=== PATIENT | male | born 1955 | race African-American/Black ===

== ENCOUNTER 2016-12-08 04:53 | Day surgery (SDC) | payer OTHER ==
[2016-12-06 16:47] VITALS: BMI 21.8
--- NOTE | 2016-12-08 11:13 | OP ---
Operative Note - Note: Operative Date: 12/08/16 Pre-Operative Diagnosis: urethral stricture Operation: retrograde urethrogram, cystoscopy and internal urethrotomy Findings: short urethral stricture bulbar area Post-Operative Diagnosis: Same as Pre-op Surgeon: Matt Dyer Anesthesiologist/GRAPE PRUNER: Prudence Sabillon MD Anesthesia: General Drains & Tubes with Location: 18 fr uriz Operative Report Dictated: Yes
[2016-12-08] MEDS ORDERED: MIDAZOLAM HCL 2 MG/2 ML SINGLE DOSE VIAL ONE (11:15)
--- NOTE | 2016-12-08 11:18 | HP ---
History & Physical Update - History History: No Change - Physical Physical: No Change - Assessment Assessment: No Change - Plan Plan: No Change
[2016-12-08] MEDS ORDERED: SUCCINYLCHOLINE CHLORIDE 200 MG/10 ML VIAL ONE (11:19)
[2016-12-08] MEDS ORDERED: PROPOFOL 20 ML ONE (11:19)
[2016-12-08] MEDS ORDERED: ceFAZolin SODIUM 1 GM VIAL IVPB ONE (11:27)
[2016-12-08] MEDS ORDERED: ceFAZolin SODIUM 1 GM VIAL ONE (11:37)
[2016-12-08] MEDS ORDERED: PROMETHAZINE HCL 25 MG/1 ML VIAL IVPUSH PRN (12:19)
[2016-12-08] MEDS ORDERED: oxyCODONE HCL 5 MG TABLET PO PRN (12:19)
[2016-12-08] MEDS ORDERED: ONDANSETRON 4 MG/2 ML VIAL IVPUSH PRN (12:19)
[2016-12-08] MEDS ORDERED: LACTATED RINGERS SOLUTION 1,000 ML IV SCH (12:30)
[2016-12-08 13:54] VITALS: TEMP 97.4
[2016-12-08 14:31] VITALS: BP 147/79; PULSE 71
--- NOTE | 2016-12-09 06:46 | OP ---
DATE OF OPERATION: 12/08/2016 PREOPERATIVE DIAGNOSIS: Urethral stricture. POSTOPERATIVE DIAGNOSIS: Urethral stricture. PROCEDURE: Retrograde urethrogram, cystoscopy, and internal urethrotomy. SURGEON: Matt Rome MD LIME MIXER: None. ANESTHESIA: General via laryngeal mask. ANESTHESIOLOGIST: Prudence Sabillon MD SPECIMENS: None. CULTURES: None. DRAINS: An 18-Maltese Mora catheter. ESTIMATED BLOOD LOSS: Negligible. COMPLICATIONS: None. DESCRIPTION OF PROCEDURE: The patient was brought into the operating room and placed on the operating room table in a supine position. After administration of intravenous antibiotics, general sedation was administered via laryngeal mask. Now the patient was placed in the dorsal lithotomy position. The perineum and genitals were prepped and draped in the usual sterile manner. Retrograde urethrogram was done and demonstrated a short stricture in the bulbar urethral region. Now urethrotome was inserted into the anterior urethra with the obturator in place. The working element was inserted, and the 12-degree telescope in the anterior urethra demonstrated a short stricture in the bulbar region. Now a guidewire was passed through the stricture and advanced into the bladder. Now urethrotome was advanced to the level of the stricture, and the stricture was incised at the 12 o'clock position down to healthy, bleeding tissue. The urethrotome was now advanced into prostatic urethra, which demonstrated moderate bilobar occlusion. The bladder was entered and thoroughly inspected. There were no foreign bodies, tumors, stones, or inflammation. Both ureteral orifices were in their usual location with clear efflux bilaterally. The guidewire was left in place. Urethrotome was withdrawn. The stricture was once again incised at the 12 o'clock position down to healthy, bleeding tissue. Now an 18-Maltese tolerance was inserted over the guidewire, 10 mL was placed in the balloon and placed in gravity drainage. Returned minimally blood tinged. The guidewire was removed. The catheter was attached to drainage bag. He tolerated the procedure well and was awoken from anesthesia in the operating room and transferred to recovery room in stable condition. He will be followed in the office on Sunday on Mora removal. MATT ROME M.D. [id number]
== END 2016-12-08 14:33 | disposition home or self-care (01) ==
LOC: JASU-SURG 04:53
PROVIDERS: ATTEND Urology
PROC: BT1BZZZ Fluoroscopy of Bladder and Urethra (ICD-10-PCS; 2016-12-08)
PROC: 0T7D8ZZ Dilation of Urethra, Via Natural or Artificial Opening Endoscopic (ICD-10-PCS; principal; 2016-12-08 12:00)
DX: N35.9 Urethral stricture, unspecified (principal)
CPT/HCPCS: 76000-TC; 94760

== ENCOUNTER 2017-01-17 15:53 | Emergency (ER) | payer OTHER ==
--- NOTE | 2017-01-17 16:06 | PDOC ---
Rapid Medical Evaluation Time Seen by Provider: 01/17/17 16:05 Medical Evaluation: Allergies Allergy/AdvReac Type Severity Reaction Status Date / Time tizanidine AdvReac Intermediate confusion Verified 12/06/16 16:32 01/17/17 16:05 61 yo M c/o hematuria with bladder pressure x4d. No n/v/f/c, denies flank pain. Urologist: Dr. Dyer 12/08/2016: retrograde urethrogram, cystoscopy and internal urethrotomy
[2017-01-17 16:09] VITALS: BP 166/101; PULSE 92; TEMP 97.7; BMI 21.8
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
[2017-01-17 18:13] LABS: URINE APPEARANCE CLEAR; URINE BILIRUBIN NEGATIVE (NEGATIVE); URINE BLOOD NEGATIVE (NEGATIVE); URINE COLOR YELLOW; URINE GLUCOSE (UA) NEGATIVE (NEGATIVE); URINE KETONE NEGATIVE (NEGATIVE); URINE NITRITE NEGATIVE (NEGATIVE); URINE UROBILINOGEN 2.0 E.U/dl E.U./dl (0.2-1.0)
[2017-01-17 18:19] LABS: BASOPHIL 4.4 % (0-2.0); EOSINOPHIL 3.4 % (0-4.5); MCH 31.4 pg (25.7-33.7); MCHC 33.9 g/dl (32.0-35.9); MEAN CELL VOLUME 92.8 fl (80-96); MEAN PLT VOLUME 8.4 fl (7.5-11.1); NEUTROPHILS 41.8 % (42.8-82.8); PLATELET COUNT 287 K/MM3 (134-434); RDW 14.6 % (11.9-15.9); WHITE BLOOD COUNT 7.4 K/mm3 (4.0-10.0)
[2017-01-17 18:57] LABS: URINE LEUK ESTERASE 2+ (NEGATIVE); URINE PROTEIN 1+ (NEGATIVE)
[2017-01-17 19:07] LABS: ALBUMIN 3.7 g/dl (3.4-5.0); BILIRUBIN,TOTAL 0.3 mg/dL (0.2-1.0); CALCIUM 9.2 mg/dL (8.5-10.1); CREATININE 1.3 mg/dL (0.7-1.3); TOT PROT 7.6 g/dl (6.4-8.2)
[2017-01-17 19:21] LABS: URINE MUCUS RARE; URINE RBC 2 /hpf (0-3); URINE WBC 9 /hpf (3-5)
[2017-01-17 19:24] LABS: INR 1.01 (0.82-1.09); PROTHROMBIN TIME (PATIENT) 11.1 SEC (9.98-11.88)
--- NOTE | 2017-01-17 22:20 | PDOC ---
Attending Attestation - Resident Resident Name: Ashlie Hannany - ED Attending Attestation I have performed the following: I have examined & evaluated the patient, The case was reviewed & discussed with the resident, I agree w/resident's findings & plan, Exceptions are as noted - HPI HPI: 01/17/17 22:16 61-year-old male with history of BPH, history of recurrent urethral strictures presents with intermittent hematuria, suprapubic abdominal pain and dysuria. - Physicial Exam PE: 01/17/17 22:17 Patient is awake and alert, well-appearing, afebrile. Serial abdominal exams reveal no focal tenderness, suprapubic discomfort initially noted upon evaluation had resolved post voiding. Gross Hematuria had also resolved. - Medical Decision Making 01/17/17 22:18 61-year-old male with history of BPH, urethral stricture status post dilation, presents with intermittent gross hematuria which has now resolved, dysuria, suprapubic abdominal pain which had also resolved.CBC/CMP within normal limit. Urinalysis reveals 9 WBCs per high-power field. Urine cultures been obtained. Will discharge with Bactrim with urology follow-up.
== END 2017-01-17 20:16 | disposition home or self-care (01) ==
LOC: JER 15:53
DX: N39.0 Urinary tract infection, site not specified (principal); Z87.891 Personal history of nicotine dependence; N40.0 Benign prostatic hyperplasia without lower urinary tract symptoms; B19.20 Unspecified viral hepatitis C without hepatic coma; I10 Essential (primary) hypertension
CPT/HCPCS: 36415; 80053; 81003; 81015; 85025; 85610; 87086; 99283-25

== ENCOUNTER 2018-06-28 08:23 | Emergency (ER) | payer OTHER ==
[2018-06-28 08:36] VITALS: TEMP 97; BMI 21.6
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
[2018-06-28 09:25] LABS: BASO % 1.3 % (0-2.0); EOS % 1.8 % (0-4.5); HEMATOCRIT 33.7 % (35.4-49); HEMOGLOBIN 11.5 GM/dL (11.7-16.9); LYMPH % 20.1 % (8-40); MCH 30.2 pg (25.7-33.7); MCHC 34.2 g/dl (32.0-35.9); MEAN CELL VOLUME 88.2 fl (80-96); MEAN PLT VOLUME 7.9 fl (7.5-11.1); MONO % 9.6 % (3.8-10.2); NEUT % 67.2 % (42.8-82.8); PLATELET COUNT 323 K/MM3 (134-434); RBC 3.83 M/mm3 (4.00-5.60); RDW 14.3 % (11.9-15.9); WHITE BLOOD COUNT 9.2 K/mm3 (4.0-10.0)
--- NOTE | 2018-06-28 09:25 | PDOC ---
Attending Attestation - Resident Resident Name: DebbieArden - ED Attending Attestation I have performed the following: I have examined & evaluated the patient, The case was reviewed & discussed with the resident, I agree w/resident's findings & plan, Exceptions are as noted - HPI HPI: 06/28/18 09:11 62y M hx of htn, tb s/p lung resection, uretheral stricture, persents with 2 weeks ago dysuria and difficutly urinating. Pt denies any fever/chills, n/v, abd pain, back pain pt has appt on 07/[address] costa scheduled. - Physicial Exam PE: 06/28/18 10:43 abd: sfot nontender, no cva tendneress, nondistended - Medical Decision Making 06/28/18 10:41 ua suggestive of UTI will treat with abx will refer to dr. costa
[2018-06-28 09:53] LABS: URINE APPEARANCE CLOUDY; URINE BILIRUBIN NEGATIVE (<2.0 mg/dL); URINE COLOR AMBER; URINE GLUCOSE (UA) NEGATIVE (NEGATIVE); URINE KETONE NEGATIVE (NEGATIVE); URINE NITRITE NEGATIVE (NEGATIVE); URINE PROTEIN NEGATIVE (NEGATIVE); URINE UROBILINOGEN NEGATIVE mg/dL (0.2-1.0)
[2018-06-28 09:59] LABS: ALBUMIN 3.5 g/dl (3.4-5.0); ANION GAP 10 (8-16); BILIRUBIN,TOTAL 0.2 mg/dL (0.2-1.0); BLOOD UREA NITROGEN 15 mg/dL (7-18); CALCIUM 9.2 mg/dL (8.5-10.1); CHLORIDE 101 mmol/L (98-107); CO2 27 mmol/L (21-32); CREATININE 1.2 mg/dL (0.7-1.3); GLUCOSE,RANDOM 119 mg/dL (74-106); POTASSIUM 3.8 mmol/L (3.5-5.1); SGOT/AST 26 U/L (15-37); SGPT/ALT 25 U/L (12-78); SODIUM 138 mmol/L (136-145); TOT PROT 8.4 g/dl (6.4-8.2)
[2018-06-28 10:00] LABS: ALK PHOS 148 U/L (45-117)
[2018-06-28 10:11] LABS: URINE LEUK ESTERASE 3+ (NEGATIVE)
[2018-06-28 10:17] LABS: EPI CELLS RARE /HPF (FEW); URINE BACTERIA MANY /hpf (NONE SEEN); URINE HYALINE CAST 4 /lpf; URINE MUCUS RARE
[2018-06-28 11:27] VITALS: BP 130/79; PULSE 70
== END 2018-06-28 11:28 | disposition home or self-care (01) ==
LOC: JER 08:23
DX: N39.0 Urinary tract infection, site not specified (principal); I10 Essential (primary) hypertension; E78.5 Hyperlipidemia, unspecified; N40.0 Benign prostatic hyperplasia without lower urinary tract symptoms; Z86.69 Personal history of other diseases of the nervous system and sense organs; Z87.891 Personal history of nicotine dependence
CPT/HCPCS: 36415; 80053; 81003; 81015; 85025; 87086; 87186; 99282-25

== ENCOUNTER 2018-10-14 07:57 | Emergency (ER) | payer OTHER ==
[2018-10-14 08:18] VITALS: BP 105/82; TEMP 98.2; BMI 22.6
[2018-10-14] MEDS ORDERED: SODIUM CHLORIDE 1,000 ML IV STA (09:38)
[2018-10-14] MEDS ORDERED: ACETAMINOPHEN 1000 MG/100 ML VIAL (NON FORMULARY) IVPB ONE (09:38)
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
[2018-10-14] MEDS ORDERED: ACETAMINOPHEN INJECTION 100 ML IVPB ONE (09:47)
[2018-10-14 10:06] LABS: BASO % 1.2 % (0-2.0); EOS % 0.9 % (0-4.5); HEMATOCRIT 36.3 % (35.4-49); HEMOGLOBIN 12.7 GM/dL (11.7-16.9); LYMPH % 29.4 % (8-40); MCH 30.2 pg (25.7-33.7); MEAN CELL VOLUME 86.4 fl (80-96); MONO % 9.7 % (3.8-10.2); NEUT % 58.8 % (42.8-82.8); PLATELET COUNT 341 K/MM3 (134-434); RBC 4.21 M/mm3 (4.00-5.60); RDW 15.3 % (11.9-15.9)
[2018-10-14 10:53] LABS: ALBUMIN 3.7 g/dl (3.4-5.0); ALK PHOS 109 U/L (45-117); ANION GAP 10 MMOL/L (8-16); BILIRUBIN,TOTAL 0.3 mg/dL (0.2-1); BLOOD UREA NITROGEN 22 mg/dL (7-18); CALCIUM 9.3 mg/dL (8.5-10.1); CHLORIDE 104 mmol/L (98-107); CO2 23 mmol/L (21-32); CREATININE 1.5 mg/dL (0.55-1.3); GLUCOSE,RANDOM 91 mg/dL (74-106); LIPASE 108 U/L (73-393); POTASSIUM 4.2 mmol/L (3.5-5.1); SGOT/AST 27 U/L (15-37); SGPT/ALT 27 U/L (13-61); SODIUM 138 mmol/L (136-145); TOT PROT 8.3 g/dl (6.4-8.2)
[2018-10-14 11:51] LABS: URINE APPEARANCE CLOUDY; URINE BILIRUBIN NEGATIVE (<2.0 mg/dL); URINE COLOR AMBER; URINE GLUCOSE (UA) NEGATIVE (NEGATIVE); URINE KETONE NEGATIVE (NEGATIVE); URINE LEUK ESTERASE 3+ (NEGATIVE); URINE NITRITE POSITIVE (NEGATIVE); URINE PROTEIN 1+ (NEGATIVE); URINE UROBILINOGEN NEGATIVE mg/dL (0.2-1.0)
[2018-10-14 12:30] LABS: EPI CELLS RARE /HPF (FEW); URINE BACTERIA FEW /hpf (NONE SEEN); URINE HYALINE CAST 3 /lpf; URINE MUCUS RARE
[2018-10-14 13:56] VITALS: PULSE 88
== END 2018-10-14 13:54 | disposition home or self-care (01) ==
LOC: JER 07:57
PROC: 3E0337Z Introduction of Electrolytic and Water Balance Substance into Peripheral Vein, Percutaneous Approach (ICD-10-PCS; principal; 2018-10-14)
PROC: 3E033NZ Introduction of Analgesics, Hypnotics, Sedatives into Peripheral Vein, Percutaneous Approach (ICD-10-PCS; 2018-10-14)
DX: N39.0 Urinary tract infection, site not specified (principal); I10 Essential (primary) hypertension; N40.0 Benign prostatic hyperplasia without lower urinary tract symptoms; Z86.19 Personal history of other infectious and parasitic diseases; Z86.69 Personal history of other diseases of the nervous system and sense organs
CPT/HCPCS: 36415; 74177-TC; 80053; 81003; 81015; 83690; 85025; 87086; 96361; 96374; 99282-25; J0131; J7030

== ENCOUNTER 2020-01-06 09:20 | Day surgery (SDC) | payer OTHER ==
[2020-01-02 15:20] VITALS: BMI 23.6
[2020-01-06] MEDS ORDERED: PROPOFOL 20 ML ONE ×2 (12:33)
[2020-01-06] MEDS ORDERED: LACTATED RINGERS SOLUTION 1,000 ML IV SCH (12:45)
--- NOTE | 2020-01-06 12:54 | CONS ---
DATE OF CONSULTATION: DATE OF DICTATION: 01/06/2020 HISTORY: Patient is a 64-year-old male with history of prostatism including frequency, nocturia, urgency, terminal dribbling. He also complained of left flank pain. An ultrasound of the kidneys revealed a left hydronephrosis secondary to a stone in the left midureter. PAST MEDICAL HISTORY: The patient does have history of prostate cancer, underwent radiation treatment therapy in May 2019. He also has history of hepatitis C. He is a hypertensive, has history of recurrent herpes and is on prophylactic Valtrex. PHYSICAL EXAMINATION: General: Reveals a well-developed adult male. Chest: Clear. Heart: Regular. Abdomen: Soft. There is left CVA tenderness. Genitalia: Atraumatic. No hernias or hydroceles are elicited. Rectal: Prostate is 1+, flat, firm and nontender. DIAGNOSTIC DATA: His PSA last month is 0.16, BUN 23 and creatinine 1.3. Patient received his Lupron Depot on December 25, 2019. IMPRESSION: Presently he has a left hydronephrosis with a left ureteral stone. PLAN: Patient will undergo a cystoscopy, left retrograde pyelogram, left ureteroscopic laser lithotripsy with placement of a left JJ stent. This was explained in detail to patient and he agrees. Will follow. Jane [id number]
[2020-01-06] MEDS ORDERED: GENTAMICIN 80MG PREMIX BAG IVPB ONE (13:00)
[2020-01-06] MEDS ORDERED: ceFAZolin SODIUM 1 GM VIAL IVPB ONE (13:00)
--- NOTE | 2020-01-06 13:37 | OP ---
Operative Note - Note: Operative Date: 01/06/20 Pre-Operative Diagnosis: lt. hydro, lt. colick, lt. ureteral stones Operation: lull with jj srents Findings: lt. ureteral stones Post-Operative Diagnosis: Same as Pre-op Surgeon: Elias Brooks Anesthesia: General Specimens Removed: urine, gravel Estimated Blood Loss (mls): 0 Drains & Tubes with Location: 24cm 6f lt. jj stent Drains, Volume Out (mls): 0 Blood Volume Replaced (mls): 0 Fluid Volume Replaced (mls): 0 Operative Report Dictated: Yes
--- NOTE | 2020-01-06 14:18 | OP ---
DATE OF OPERATION: 01/06/2020 PREOPERATIVE DIAGNOSIS: Left hydronephrosis, left renal colic, hematuria, history of prostate cancer. POSTOPERATIVE DIAGNOSIS: Left ureteral stone, left hydronephrosis. OPERATIVE PROCEDURE: Cystourethroscopy, left retrograde pyelogram, left ureteroscopy, left stone basketing and placement of a left JJ stent. ANESTHESIA: General. DESCRIPTION OF PROCEDURE: Under above-stated anesthesia patient was prepped and draped in the usual sterile manner. He was placed in the dorsal lithotomy position. Cystoscopy under direct vision revealed a normal anterior urethra. Prostatic urethra was wide open. The bladder was emptied. The urine was collected for culture and sensitivity. There was a grade 2-3 trabeculation of the bladder. Ureteral orifices were within normal limits. Efflux of clear urine was noted from the right side; none was seen from the left. A left retrograde pyelogram was performed. This revealed a mild left hydroureteronephrosis. A glidewire was passed above the left renal unit. Several small stones were found in the midureter. Using a basket the fragments were removed. Ureteroscopy into the renal pelvis revealed no other pathology or stones. The pelvis was dilated. Therefore the ureteroscope was removed. A 22-cm 6-Salvad[place] left JJ stent was left in place. X-rays confirmed good position of the stent. The bladder was emptied. The scope was removed. The patient tolerated the procedure well. He returned to the recovery room in good condition. Jane [id number]
[2020-01-06 15:44] VITALS: BP 146/88; PULSE 65; TEMP 97.6
--- NOTE | 2020-01-07 16:52 | PATH ---
Cytology Non-Gynecological Report Patient Name: SALVADOR HENRY Med. Rec. #: [id number] /Age/Gender: 1955 (Age: 64) / M Account: [id number] Location: [facility] Taken: 01/06/2020 Received: 01/07/2020 Reported: 01/07/2020 Physicians: Elias Brooks M.D. Specimen(s) Received URINE Clinical History Calculi Final Diagnosis URINE FOR CYTOLOGY: SATISFACTORY FOR EVALUATION. NEGATIVE FOR HIGH GRADE UROTHELIAL CARCINOMA. RARE UROTHELIAL CELLS, SQUAMOUS EPITHELIAL CELLS, AND RED BLOOD CELLS PRESENT. Electronically Signed Ewelina Bragg M.D. Gross Description Approximately 25 cc of yellow fluid received fresh. One cytofunnel prepared and Pap stained.
--- NOTE | 2020-01-08 09:44 | PATH ---
Surgical Pathology Report Patient Name: SALVADOR HENRY Med. Rec. #: [id number] /Age/Gender: 1955 (Age: 64) / M Account: [id number] Location: [facility] Taken: 01/06/2020 Received: 01/06/2020 Reported: 01/08/2020 Physicians: Elias Brooks M.D. Specimen(s) Received CALCULI Clinical History Left hydronephrosis Final Diagnosis GRAVEL, LASER LITHOTRIPSY: CONSISTENT WITH FRAGMENTED CALCULI. MACROSCOPIC DIAGNOSIS. Electronically Signed By Ewelina Bragg M.D. Gross Description Received in formalin labeled "gravel," is a 0.2 x 0.1 x 0.1 cm aggregate of brown, fragmented calculi. The formalin is drained and the specimen is dried and sent for chemical analysis. /01/07/2020 [facility]01/07/2020
[2020-01-26 12:55] LABS: SIZE 2x3mm; WEIGHT 0.8mg
== END 2020-01-06 15:45 | disposition home or self-care (01) ==
LOC: JASU-SURG 09:20
PROVIDERS: ATTEND Urology
PROC: 0T9780Z Drainage of Left Ureter with Drainage Device, Via Natural or Artificial Opening Endoscopic (ICD-10-PCS; 2020-01-06)
PROC: BT1FZZZ Fluoroscopy of Left Kidney, Ureter and Bladder (ICD-10-PCS; 2020-01-06)
PROC: 0TF78ZZ Fragmentation in Left Ureter, Via Natural or Artificial Opening Endoscopic (ICD-10-PCS; principal; 2020-01-06 11:00)
PROC: 0T778DZ Dilation of Left Ureter with Intraluminal Device, Via Natural or Artificial Opening Endoscopic (ICD-10-PCS; 2020-01-06 11:00)
PROC: 0TC78ZZ Extirpation of Matter from Left Ureter, Via Natural or Artificial Opening Endoscopic (ICD-10-PCS; 2020-01-06 11:00)
DX: N13.2 Hydronephrosis with renal and ureteral calculous obstruction (principal); Z85.46 Personal history of malignant neoplasm of prostate
CPT/HCPCS: 36415; 82360; 87086; 88108; 94760

== ENCOUNTER 2021-03-04 22:09 | Emergency (ER) | payer OTHER ==
[2021-03-04 22:13] VITALS: TEMP 97; BMI 24.5
[2021-03-04] MEDS ORDERED: LIDOCAINE HCL 2% JELLY 10 ML CARTRIDGE UR ONE (23:08)
[2021-03-04] MEDS ORDERED: ACETAMINOPHEN 325 MG TABLET (FP) PO ONE (23:08)
[2021-03-04] MEDS ORDERED: LIDOCAINE HCL 2% JELLY 10 ML CARTRIDGE ONE (23:09)
[2021-03-04] MEDS ORDERED: ACETAMINOPHEN 325 MG TABLET (FP) ONE (23:10)
[2021-03-04 23:36] LABS: EPI CELLS 3 /uL (0-25.1); HYALINE CASTS 0 /uL (0-3.1); PH,URINE 8.5 (5.0-8.0); URINE APPEARANCE CLEAR; URINE BACTERIA 41 /uL (0-1359); URINE BILIRUBIN NEGATIVE (NEGATIVE); URINE COLOR YELLOW; URINE GLUCOSE (UA) NEGATIVE (NEGATIVE); URINE KETONE NEGATIVE (NEGATIVE); URINE LEUK ESTERASE NEGATIVE (NEGATIVE); URINE NITRITE NEGATIVE (NEGATIVE); URINE PROTEIN 1+ (NEGATIVE); URINE RBC 14 /uL (0-23.9); URINE UROBILINOGEN 0.2 mg/dL (0.2-1.0); URINE WBC 1 /uL (0-25.8)
[2021-03-05] VITALS: BP 168/84; PULSE 85
== END 2021-03-05 00:18 | disposition home or self-care (01) ==
LOC: JER 22:09
DX: R33.9 Retention of urine, unspecified (principal)
CPT/HCPCS: 81003; 87086; 99283-25

== ENCOUNTER 2021-11-02 05:36 | Emergency (ER) | payer OTHER ==
[2021-11-02 06:39] VITALS: TEMP 97.6; BMI 22.3
[2021-11-02 09:09] LABS: BASO % 0.4 % (0-2.0); EOS % 4.8 % (0-4.5); HEMATOCRIT 36.2 % (35.4-49); HEMOGLOBIN 12.4 GM/dL (11.7-16.9); MCH 30.8 pg (25.7-33.7); MCHC 34.4 g/dl (32.0-35.9); MEAN CELL VOLUME 89.6 fl (80-96); MEAN PLT VOLUME 8.6 fl (7.5-11.1); MONO % 7.9 % (3.8-10.2); NEUT % 55.9 % (42.8-82.8); PLATELET COUNT 302 10^3/uL (134-434); RBC 4.04 M/mm3 (4.00-5.60); RDW 15.1 % (11.9-15.9); WHITE BLOOD COUNT 7.3 K/mm3 (4.0-10.0)
[2021-11-02 09:15] LABS: EPI CELLS 14 /uL (0-25.1); HYALINE CASTS 2 /uL (0-3.1); URINE APPEARANCE CLEAR; URINE BACTERIA 4 /uL (0-1359); URINE BILIRUBIN NEGATIVE (NEGATIVE); URINE COLOR YELLOW; URINE GLUCOSE (UA) NEGATIVE (NEGATIVE); URINE KETONE NEGATIVE (NEGATIVE); URINE LEUK ESTERASE 2+ (NEGATIVE); URINE NITRITE NEGATIVE (NEGATIVE); URINE PROTEIN 1+ (NEGATIVE); URINE RBC 15 /uL (0-23.9); URINE UROBILINOGEN 0.2 mg/dL (0.2-1.0); URINE WBC 128 /uL (0-25.8)
[2021-11-02 09:28] LABS: CALCIUM 8.9 mg/dL (8.5-10.1)
[2021-11-02 09:29] LABS: ALBUMIN 3.6 g/dl (3.4-5.0); BLOOD UREA NITROGEN 25.9 mg/dL (7-18)
[2021-11-02 09:32] LABS: CREATININE 1.4 mg/dL (0.55-1.3)
[2021-11-02 09:33] LABS: BILIRUBIN,TOTAL 0.2 mg/dL (0.2-1)
[2021-11-02 09:34] LABS: TOT PROT 8.3 g/dl (6.4-8.2)
[2021-11-02] MEDS ORDERED: traMADol HCL 50 MG TABLET PO ONE (11:08)
[2021-11-02] MEDS ORDERED: traMADol HCL 50 MG TABLET ONE (11:13)
[2021-11-02 12:50] VITALS: BP 155/67; PULSE 90
== END 2021-11-02 12:51 | disposition home or self-care (01) ==
LOC: JER 05:36
DX: N30.00 Acute cystitis without hematuria (principal)
CPT/HCPCS: 36415; 76775-TC; 76856-TC; 80053; 81003; 85025; 87086; 99285-25

== ENCOUNTER 2022-12-18 07:36 | Emergency (ER) | payer OTHER ==
[2022-12-18 08:00] VITALS: BP 157/96; PULSE 92; RESP 20; TEMP 97.5; BMI 24.7
[2022-12-18 08:54] LABS: EPI CELLS 3 /uL (0-25.1); HYALINE CASTS 0 /uL (0-3.1); URINE APPEARANCE CLEAR; URINE BACTERIA 2 /uL (0-1359); URINE BILIRUBIN NEGATIVE (NEGATIVE); URINE COLOR YELLOW; URINE GLUCOSE (UA) NEGATIVE (NEGATIVE); URINE KETONE NEGATIVE (NEGATIVE); URINE LEUK ESTERASE NEGATIVE (NEGATIVE); URINE NITRITE NEGATIVE (NEGATIVE); URINE PROTEIN 2+ (NEGATIVE); URINE RBC 34 /uL (0-23.9); URINE UROBILINOGEN 0.2 mg/dL (0.2-1.0); URINE WBC 2 /uL (0-25.8)
== END 2022-12-18 10:07 | disposition home or self-care (01) ==
LOC: JERFT 07:36 → JER 07:36 → JERFT 10:07
DX: R30.0 Dysuria (principal)
CPT/HCPCS: 81003; 87086; 99283-25

== ENCOUNTER 2024-03-28 03:51 | Day surgery (SDC) | payer OTHER ==
[2024-03-26 16:04] VITALS: BMI 24.0
[2024-03-28] MEDS ORDERED: BUPIVACAINE HCL/PF 0.5% (5MG/ML) 10 ML VIAL ONE (07:05)
[2024-03-28 13:05] VITALS: TEMP 97.6
[2024-03-28] MEDS: LIDOCAINE HCL 1% PRESERVATIVE FREE - 30ML VIAL IJ ONE ×2 (13:55)
[2024-03-28] MEDS: BUPIVACAINE HCL/PF 0.5% (5MG/ML) 10 ML VIAL IJ ONE ×5 (13:56→14:03)
[2024-03-28 14:17] VITALS: BP 145/77; PULSE 65; RESP 18
[2024-03-28] MEDS ORDERED: ACETAMINOPHEN 500 MG TABLET (FP) PO PRN (14:46)
== END 2024-03-28 14:44 | disposition home or self-care (01) ==
LOC: JASU-SURG 03:51
PROVIDERS: ATTEND Pain Medicine Pain Medicine
PROC: BR14YZZ Fluoroscopy of Cervical Facet Joint(s) using Other Contrast (ICD-10-PCS; 2024-03-28)
PROC: 3E0T3BZ Introduction of Anesthetic Agent into Peripheral Nerves and Plexi, Percutaneous Approach (ICD-10-PCS; principal; 2024-03-28 17:45)
DX: M47.811 Spondylosis without myelopathy or radiculopathy, occipito-atlanto-axial region (principal)
CPT/HCPCS: 76000-TC-FY

== ENCOUNTER 2024-11-20 07:33 | Emergency (ER) | payer OTHER ==
[2024-11-20 07:44] VITALS: TEMP 97.1; BMI 22.6
[2024-11-20 09:32] LABS: BASO % 2.3 % (0-2.0); EOS % 3.1 % (0-4.5); HEMATOCRIT 36.8 % (35.4-49); HEMOGLOBIN 12.6 GM/dL (11.7-16.9); LYMPH % 35.1 % (8-40); MCH 30.7 pg (25.7-33.7); MCHC 34.2 g/dl (32.0-35.9); MEAN CELL VOLUME 89.6 fl (80-96); MEAN PLT VOLUME 8.8 fl (7.5-11.1); MONO % 11.4 % (3.8-10.2); NEUT % 48.1 % (42.8-82.8); PLATELET COUNT 273 10^3/uL (134-434); RBC 4.11 M/mm3 (4.00-5.60); RDW 14.2 % (11.9-15.9); WHITE BLOOD COUNT 5.9 K/mm3 (4.0-10.0)
[2024-11-20 09:35] LABS: PH,URINE 6.5 (5.0-8.0); URINE APPEARANCE CLOUDY; URINE BILIRUBIN NEGATIVE (NEGATIVE); URINE COLOR YELLOW; URINE GLUCOSE (UA) NEGATIVE (NEGATIVE); URINE KETONE NEGATIVE (NEGATIVE); URINE LEUK ESTERASE 2+ (NEGATIVE); URINE NITRITE NEGATIVE (NEGATIVE); URINE PROTEIN 1+ (NEGATIVE); URINE UROBILINOGEN 0.2 mg/dL (0.2-1.0)
[2024-11-20 09:43] LABS: EPI CELLS 1.6 /uL (0-25.1); HYALINE CASTS 0 /uL (0-3.1); URINE BACTERIA 81428 /uL (0-1359); URINE WBC 2424 /uL (0-25.8)
[2024-11-20 09:55] LABS: POTASSIUM 4.4 mmol/L (3.5-5.1)
[2024-11-20 09:57] LABS: CALCIUM 10.4 mg/dL (8.5-10.1)
[2024-11-20 09:58] LABS: ALBUMIN 3.8 g/dl (3.4-5.0); BLOOD UREA NITROGEN 15.4 mg/dL (7-18)
[2024-11-20 10:02] LABS: BILIRUBIN,TOTAL 0.4 mg/dL (0.2-1); CREATININE 1.4 mg/dL (0.55-1.3)
[2024-11-20] MEDS ORDERED: CEFTRIAXONE 1 G/50 ML PREMIX 50 ML IVPB ONE (10:10)
[2024-11-20] MEDS: CEFTRIAXONE 1,000 MG in DEXTROSE 5%-WATER - 50 ML IVPB ONE (10:21)
[2024-11-20 11:08] VITALS: BP 165/81; PULSE 64; RESP 18
[2024-11-20 12:52] LABS: HIV INTERPRETATION NEGATIVE (NEGATIVE)
== END 2024-11-20 11:10 | disposition home or self-care (01) ==
LOC: JER 07:33
DX: N39.0 Urinary tract infection, site not specified (principal); R35.0 Frequency of micturition; R30.0 Dysuria; R10.9 Unspecified abdominal pain
CPT/HCPCS: 36415; 80053; 81003; 85025; 86803; 87086; 87186; 87389; 87522; 96365; 99284-25